=== PATIENT | female | born 1965 | race Caucasian/White ===

== ENCOUNTER 2017-07-05 13:03 | Emergency (ER) | payer MEDICARE, OTHER ==
[~2017-07-05 13:03] MED LIST: ALPR0.5T3 PO; CYCL5TAB PO; GABA100C4 PO; LINA290C PO; PANT40TA3 PO
[2017-07-05 13:13] VITALS: BP 130/82; PULSE 65; RESP 16; TEMP 97.3; O2SAT 98
--- NOTE | 2017-07-05 14:32 | PD ---
HPI Chief Complaint: Deputy Commissioner Problem/Complaint Time Seen by Provider: 14:30 Travel History International Travel<30 days: No Contact w/Intl Traveler<30days: No Traveled to known affect area: No History of Present Illness HPI 52-year-old female patient with history of dysfunctional uterine bleeding, was scheduled for a hysterectomy last year when her mother and she had it delayed. Presents to the ER today because she states that she started having some bleeding for 2 days and then having much more heavy bleeding this afternoon, her friend found her in a pool of blood in the bathroom. She complains of pelvic pains which she gets a lot, states that she has fibroids which has been causing the bleeding. She denies any fevers or any other issues. Modifying Factors: None Associated Signs & Symptoms: Pelvic pains, heavy vaginal bleeding Risk Factors: Dysfunctional uterine bleeding PFSH Past Medical History ?: Not Social History Tobacco Use: No Allergies-Medications (Allergen,Severity, Reaction): Coded Allergies: diatrizoate meglumine (Unverified Allergy, Severe, 07/05/17) gadobenic acid (Unverified Allergy, Severe, 07/05/17) gadodiamide (Unverified Allergy, Severe, 07/05/17) gadoteridol (Unverified Allergy, Severe, 07/05/17) iodixanol (Unverified Allergy, Severe, 07/05/17) iohexol (Unverified Allergy, Severe, 07/05/17) penicillin G (Unverified Allergy, Severe, hives, throat, swelling , ) Reported Meds & Prescriptions Reported Meds & Active Scripts Active Alprazolam 0.5 Mg Tab 0.5 Mg PO Q8H PRN Linzess (Linaclotide) 290 Mcg Cap 290 Mcg PO DAILY Pantoprazole (Pantoprazole Sodium) 40 Mg Tab 40 Mg PO BID Flexeril (Cyclobenzaprine HCl) 5 Mg Tab 5 Mg PO TID Review of Systems Except as stated in HPI: all other systems reviewed are Neg Physical Exam Narrative GENERAL: Well-developed middle age white female patient currently in mild distress. Awake and oriented 3. SKIN: Focused skin assessment warm/dry. HEAD: Atraumatic. Normocephalic. EYES: Pupils equal and round. No scleral icterus. No injection or drainage. ENT: No nasal bleeding or discharge. Mucous membranes pink and moist. NECK: Trachea midline. No JVD. CARDIOVASCULAR: Regular rate and rhythm. No murmur appreciated. RESPIRATORY: No accessory muscle use. Clear to auscultation. Breath sounds equal bilaterally. GASTROINTESTINAL: Abdomen soft, non-tender, nondistended. Hepatic and splenic margins not palpable. MUSCULOSKELETAL: No obvious deformities. No clubbing. No cyanosis. No edema. GENITOURINARY: Normal external genitalia without lesions or erythema. Vaginal vault with dark blood but no significant drainage. Cervical os was closed without drainage. No cervical motion tenderness. NEUROLOGICAL: Awake and alert. No obvious cranial nerve deficits. Motor grossly within normal limits. Normal speech. PSYCHIATRIC: Appropriate mood and affect; insight and judgment normal. Data Data Last Documented VS Vital Signs Date Time Temp Pulse Resp B/P (MAP) Pulse Ox O2 Delivery O2 Flow Rate FiO2 07/05/17 13:13 97.3 65 16 130/82 (98) 98 Orders Orders Complete Blood Count With Diff (07/05/17 14:19) Comprehensive Metabolic Panel (07/05/17 14:19) Prothrombin Time / Inr (Pt) (07/05/17 14:19) Act Partial Throm Time (Ptt) (07/05/17 14:19) Type And Screen (07/05/17 14:19) Labs Laboratory Tests Test 07/05/17 14:45 White Blood Count 8.7 TH/MM3 Red Blood Count 4.41 MIL/MM3 Hemoglobin 13.0 GM/DL Hematocrit 38.9 % Mean Corpuscular Volume 88.1 FL Mean Corpuscular Hemoglobin 29.5 PG Mean Corpuscular Hemoglobin Concent 33.5 % Red Cell Distribution Width 13.7 % Platelet Count 190 TH/MM3 Mean Platelet Volume 10.1 FL Neutrophils (%) (Auto) 83.2 % Lymphocytes (%) (Auto) 10.9 % Monocytes (%) (Auto) 4.8 % Eosinophils (%) (Auto) 0.9 % Basophils (%) (Auto) 0.2 % Neutrophils # (Auto) 7.2 TH/MM3 Lymphocytes # (Auto) 1.0 TH/MM3 Monocytes # (Auto) 0.4 TH/MM3 Eosinophils # (Auto) 0.1 TH/MM3 Basophils # (Auto) 0.0 TH/MM3 CBC Comment DIFF FINAL Differential Comment Prothrombin Time 9.9 SEC Prothromb Time International Ratio 0.9 RATIO Activated Partial Thromboplast Time 25.5 SEC Blood Urea Nitrogen 14 MG/DL Creatinine 0.56 MG/DL Random Glucose 103 MG/DL Total Protein 6.4 GM/DL Albumin 3.2 GM/DL Calcium Level 8.3 MG/DL Alkaline Phosphatase 57 U/L Aspartate Amino Transf (AST/SGOT) 19 U/L Alanine Aminotransferase (ALT/SGPT) 30 U/L Total Bilirubin 0.2 MG/DL Sodium Level 139 MEQ/L Potassium Level 4.3 MEQ/L Chloride Level 106 MEQ/L Carbon Dioxide Level 27.8 MEQ/L Anion Gap 5 MEQ/L Estimat Glomerular Filtration Rate 114 ML/MIN MDM Medical Decision Making Medical Screen Exam Complete: Yes Emergency Medical Condition: Yes Medical Record Reviewed: Yes Interpretation(s) Laboratory Tests Test 07/05/17 14:45 Neutrophils (%) (Auto) 83.2 % (16.0-70.0) Albumin 3.2 GM/DL (3.4-5.0) Calcium Level 8.3 MG/DL (8.5-10.1) Differential Diagnosis Rule out anemia, dysfunctional uterine bleeding Narrative Course Vital signs are stable in the ER. Lab work did not show any significant dysrhythmias. Patient has had this issue in the past, has uterine fibroids and has had consultation for hysterectomy with [facility]. At this point, my plan would be to release her with follow-up to [facility] for definitive therapy. Return for new issues as needed. The plan has discussed with her and she states understanding. Diagnosis Primary Impression: Dysfunctional uterine bleeding Referrals: Chelsea Ryan MD Disposition: 01 DISCHARGE HOME Condition: Stable Moiz Juarez MD Jul 05, 2017 14:32
[2017-07-05 15:07] LABS: AUTOMATED NEUTROPHIL # 7.2 TH/MM3 (1.8-7.7); BASOPHIL % 0.2 % (0.0-2.0); EOSINOPHIL # 0.1 TH/MM3 (0-0.4); EOSINOPHIL % 0.9 % (0.0-4.0); HEMATOCRIT 38.9 % (35.0-46.0); HEMO FLAGS DIFF FINAL; LYMPH % 10.9 % (9.0-44.0); MEAN CELL VOLUME 88.1 FL (80.0-100.0); MEAN CORPUSCULAR HEMOGLOBIN 29.5 PG (27.0-34.0); MEAN CORPUSCULAR HGB CONC 33.5 % (32.0-36.0); MONO % 4.8 % (0.0-8.0); NEUT % 83.2 % (16.0-70.0); PLATELET COUNT 190 TH/MM3 (150-450); RED BLOOD COUNT 4.41 MIL/MM3 (4.00-5.30); RED CELL DISTRIBUTION WIDTH 13.7 % (11.6-17.2); WHITE BLOOD COUNT 8.7 TH/MM3 (4.0-11.0)
[2017-07-05 15:13] LABS: CHLORIDE 106 MEQ/L (98-107); POTASSIUM 4.3 MEQ/L (3.5-5.1); SODIUM (NA) 139 MEQ/L (136-145)
[2017-07-05 15:16] LABS: ANION GAP 5 MEQ/L (5-15); BICARBONATE 27.8 MEQ/L (21.0-32.0)
[2017-07-05 15:17] LABS: BLOOD UREA NITROGEN 14 MG/DL (7-18)
[2017-07-05 15:18] LABS: APTT (PATIENT) 25.5 SEC (24.3-30.1); INTERNATIONAL NORMALIZED RATIO 0.9 RATIO; PROTHROMBIN TIME - PATIENT 9.9 SEC (9.8-11.6)
[2017-07-05 15:19] LABS: ALT (GPT) 30 U/L (10-53); AST (GOT) 19 U/L (15-37)
[2017-07-05 15:20] LABS: GLOMERULAR FILTRATION RATE 114 ML/MIN (>89)
[2017-07-05 15:21] LABS: TOTAL BILIRUBIN ADULT 0.2 MG/DL (0.2-1.0)
[2017-07-05 15:22] LABS: ALKALINE PHOSPHATASE 57 U/L (45-117)
[2017-07-05 16:13] VITALS: BP 127/93
== END 2017-07-05 16:16 | disposition home or self-care (01) ==
LOC: PHED 13:03
DX: N93.8 Other specified abnormal uterine and vaginal bleeding (principal)
CPT/HCPCS: 80053; 85025; 85610; 85730; 86850; 86900; 86901; 99283